=== PATIENT | male | born 1985 | race African-American/Black ===

== ENCOUNTER 2020-04-20 10:50 | Emergency (ER) | payer OTHER ==
[~2020-04-20] VITALS: Ht 157.5 cm; Wt 89.8 kg
[2020-04-20] MEDS ORDERED: TRAMADOL 50 MG50 MG PO (14:05)
[2020-04-20] MEDS ORDERED: KEFLEX500 M1 PO (14:05)
[2020-04-20 14:30] VITALS: BP 124/52
== END 2020-04-20 14:30 | disposition home or self-care (01) ==
LOC: ER 10:50
DX: S61.412A Laceration without foreign body of left hand, initial encounter (principal); F17.210 Nicotine dependence, cigarettes, uncomplicated; W26.0XXA Contact with knife, initial encounter; Y93.89 Activity, other specified; Y92.69 Other specified industrial and construction area as the place of occurrence of the external cause; Y99.9 Unspecified external cause status

== ENCOUNTER 2020-05-11 10:10 | Emergency (ER) | payer OTHER ==
[~2020-05-11] VITALS: Ht 165.1 cm; Wt 89.8 kg
[~2020-05-11 10:10] MED LIST: KEFLEX500 M1 PO; TRAMADOL 50 MG50 MG PO
[2020-05-11 12:40] VITALS: BP 138/94
== END 2020-05-11 12:40 | disposition home or self-care (01) ==
LOC: ER 10:10
DX: S61.412D Laceration without foreign body of left hand, subsequent encounter (principal); F17.210 Nicotine dependence, cigarettes, uncomplicated; X58.XXXD Exposure to other specified factors, subsequent encounter